=== PATIENT | male | born 1935 | race Caucasian/White ===

== ENCOUNTER 2016-11-09 09:51 | Emergency (ER) | payer MEDICARE | END 2016-11-09 11:18 | disposition home or self-care (01) | LOC: EDBD → ER 09:51 → MERGE 09:51 → ER 11:18 | DX: S20.212A Contusion of left front wall of thorax, initial encounter (principal); S70.01XA Contusion of right hip, initial encounter; W01.0XXA Fall on same level from slipping, tripping and stumbling without subsequent striking against object, initial encounter; Y92.009 Unspecified place in unspecified non-institutional (private) residence as the place of occurrence of the external cause; Z79.899 Other long term (current) drug therapy; Z79.82 Long term (current) use of aspirin; I10 Essential (primary) hypertension; E03.9 Hypothyroidism, unspecified; F32.9 Major depressive disorder, single episode, unspecified; Z86.73 Personal history of transient ischemic attack (TIA), and cerebral infarction without residual deficits ==

== ENCOUNTER 2016-11-14 10:56 | Inpatient (IN) | payer MEDICARE ==
[~2016-11-14] VITALS: Ht 188 cm; Wt 98.9 kg
[2016-11-14] MEDS ORDERED: ACETAMINOPHEN 325 MG TAB PO PRN (11:00)
[2016-11-14] MEDS ORDERED: TEMAZEPAM 7.5 MG CAP PO PRN (11:00)
[2016-11-14] MEDS ORDERED: DEXTROSE 50% SYRINGE 50 ML IV PRN (11:00)
[2016-11-14] MEDS ORDERED: GLUCAGON 1 MG VIAL IM PRN (11:00)
[2016-11-14] MEDS ORDERED: SALINE FLUSH 10 ML FLUSH PRN (11:00)
[2016-11-14] MEDS: OMNIPAQUE 240 MG/ML, 50 ML PO SCH ×2 (11:00→13:00)
[2016-11-14] MEDS ORDERED: Aspirin 325 MG TAB PO SCH (11:55)
[2016-11-14] MEDS ORDERED: PANTOPRAZOLE 40 MG TAB PO SCH (11:56)
[2016-11-14 12:54] VITALS: BP_SYST 137; BP_SYST 146; RESP 18; TEMP 97.6
[2016-11-14 12:55] VITALS: Ht 188 cm; Wt 98.9 kg
[2016-11-14] MEDS: BUPROPION XL 150 MG TAB PO SCH (14:20)
[2016-11-14] MEDS: GABAPENTIN 100 MG CAP PO SCH ×2 (14:21→21:05)
[2016-11-14] MEDS: DILTIAZEM CD 240 MG CAP PO SCH (14:21)
[2016-11-14] MEDS: ESCITALOPRAM 10 MG TAB PO SCH (14:21)
[2016-11-14] MEDS: FOLIC ACID 1 MG TAB PO SCH (14:21)
[2016-11-14] MEDS: CALC CARB 500 MG CHEWTAB PO SCH (14:21)
[2016-11-14] MEDS: CHOLECALCIFEROL 1,000 UNITS TAB PO SCH (14:21)
[2016-11-14] MEDS: HCTZ 25 MG TAB PO SCH (14:22)
[2016-11-14] MEDS: LEVETIRACETAM 500 MG TAB PO SCH ×2 (14:22→21:05)
[2016-11-14] MEDS: KCL CR 8 MEQ TAB PO SCH ×2 (14:22→21:05)
[2016-11-14] MEDS: IRBESARTAN 150 MG TAB PO SCH (14:22)
[2016-11-14] MEDS: LORATADINE 10 MG TAB PO SCH (14:22)
[2016-11-14] MEDS: PREDNISONE 5 MG TAB PO SCH (14:23)
[2016-11-14] MEDS: ASPIRIN 81 MG CHEW TAB PO SCH (14:25)
[2016-11-14] MEDS: PANTOPRAZOLE 40 MG TAB PO SCH (14:57)
[2016-11-14] MEDS: LISINOPRIL 10 MG TAB PO SCH (14:58)
[2016-11-14] MEDS: TAMSULOSIN 0.4 MG CAP PO SCH (19:36)
[2016-11-14 20:25] VITALS: BP_SYST 156; RESP 18; TEMP 98.5
[2016-11-14] MEDS ORDERED: MIRTAZAPINE 15 MG TAB PO SCH (21:00)
[2016-11-14] MEDS ORDERED: Atorvastatin 20 MG TAB PO SCH (21:00)
[2016-11-14] MEDS: SALINE FLUSH 10 ML FLUSH SCH (21:04)
[2016-11-14] MEDS: Atorvastatin 10 MG TAB PO SCH (21:05)
[2016-11-14] MEDS: MONTELUKAST 10 MG TAB PO SCH (21:05)
[2016-11-14] MEDS: Finasteride 5 MG TAB PO SCH (21:05)
[2016-11-14] MEDS: SODIUM CHLORIDE 0.9% FLUSH BAG 500 ML IV SCH (23:49)
[2016-11-14 23:55] VITALS: BP_SYST 159; RESP 17; TEMP 98
[2016-11-15 04:08] VITALS: BP_SYST 148; RESP 17; TEMP 97.5
[2016-11-15] MEDS: PANTOPRAZOLE 40 MG TAB PO SCH ×2 (06:02→18:25)
[2016-11-15 07:15] VITALS: BP_SYST 133; RESP 18; TEMP 97.3
[2016-11-15] MEDS ORDERED: ASPIRIN 81 MG CHEW TAB PO SCH (09:00)
[2016-11-15] MEDS: GABAPENTIN 100 MG CAP PO SCH ×2 (09:10→21:55)
[2016-11-15] MEDS: FOLIC ACID 1 MG TAB PO SCH (09:10)
[2016-11-15] MEDS: SALINE FLUSH 10 ML FLUSH SCH ×2 (09:10→19:38)
[2016-11-15] MEDS: ESCITALOPRAM 10 MG TAB PO SCH (09:10)
[2016-11-15] MEDS: HCTZ 25 MG TAB PO SCH (09:10)
[2016-11-15] MEDS: ASPIRIN 81 MG CHEW TAB PO SCH (09:10)
[2016-11-15] MEDS: CALC CARB 500 MG CHEWTAB PO SCH (09:11)
[2016-11-15] MEDS: CHOLECALCIFEROL 1,000 UNITS TAB PO SCH (09:11)
[2016-11-15] MEDS: DILTIAZEM CD 240 MG CAP PO SCH (09:11)
[2016-11-15] MEDS: LISINOPRIL 10 MG TAB PO SCH (09:11)
[2016-11-15] MEDS: IRBESARTAN 150 MG TAB PO SCH (09:11)
[2016-11-15] MEDS: LEVETIRACETAM 500 MG TAB PO SCH ×2 (09:11→21:54)
[2016-11-15] MEDS: BUPROPION XL 150 MG TAB PO SCH (09:11)
[2016-11-15] MEDS: LORATADINE 10 MG TAB PO SCH (09:11)
[2016-11-15] MEDS: KCL CR 8 MEQ TAB PO SCH ×2 (09:11→21:54)
[2016-11-15] MEDS: PREDNISONE 5 MG TAB PO SCH (09:12)
[2016-11-15] MEDS: OMNIPAQUE 240 MG/ML, 50 ML PO SCH (11:09)
[2016-11-15 12:17] VITALS: BP_SYST 147; RESP 16; TEMP 97.7
[2016-11-15] MEDS ORDERED: CLOPIDOGREL 75 MG TAB PO ONE (12:30)
[2016-11-15 17:20] VITALS: BP_SYST 144; RESP 18; TEMP 98.3
[2016-11-15] MEDS: TAMSULOSIN 0.4 MG CAP PO SCH (18:24)
[2016-11-15 19:50] VITALS: BP_SYST 152; RESP 16; TEMP 98.6
[2016-11-15] MEDS: MIRTAZAPINE 15 MG TAB PO SCH (21:54)
[2016-11-15] MEDS: Finasteride 5 MG TAB PO SCH (21:54)
[2016-11-15] MEDS: MONTELUKAST 10 MG TAB PO SCH (21:55)
[2016-11-15] MEDS: Atorvastatin 10 MG TAB PO SCH (21:55)
[2016-11-15 23:25] VITALS: BP_SYST 187; RESP 16; TEMP 98.4
[2016-11-16 03:06] VITALS: BP_SYST 128; BP_SYST 165; RESP 16; TEMP 97.9; TEMP 98.5
[2016-11-16] MEDS: SODIUM CHLORIDE 0.9% FLUSH BAG 500 ML IV SCH (06:00)
[2016-11-16] MEDS: PANTOPRAZOLE 40 MG TAB PO SCH ×2 (06:09→17:43)
[2016-11-16 07:42] VITALS: BP_SYST 174; RESP 16; TEMP 97.5
[2016-11-16] MEDS ORDERED: CLOPIDOGREL 75 MG TAB PO SCH (09:00)
[2016-11-16 11:21] VITALS: BP_SYST 156; RESP 16; TEMP 98.5
[2016-11-16] MEDS: LISINOPRIL 10 MG TAB PO SCH (12:08)
[2016-11-16] MEDS: BUPROPION XL 150 MG TAB PO SCH (12:08)
[2016-11-16] MEDS: CALC CARB 500 MG CHEWTAB PO SCH (12:08)
[2016-11-16] MEDS: ESCITALOPRAM 10 MG TAB PO SCH (12:08)
[2016-11-16] MEDS: GABAPENTIN 100 MG CAP PO SCH ×2 (12:08→20:42)
[2016-11-16] MEDS: PREDNISONE 5 MG TAB PO SCH (12:08)
[2016-11-16] MEDS: HCTZ 25 MG TAB PO SCH (12:09)
[2016-11-16] MEDS: DILTIAZEM CD 240 MG CAP PO SCH (12:09)
[2016-11-16] MEDS: LORATADINE 10 MG TAB PO SCH (12:09)
[2016-11-16] MEDS: KCL CR 8 MEQ TAB PO SCH ×2 (12:09→20:42)
[2016-11-16] MEDS: LEVETIRACETAM 500 MG TAB PO SCH ×2 (12:09→20:42)
[2016-11-16] MEDS: FOLIC ACID 1 MG TAB PO SCH (12:09)
[2016-11-16] MEDS: IRBESARTAN 150 MG TAB PO SCH (12:09)
[2016-11-16] MEDS: ASPIRIN 81 MG CHEW TAB PO SCH (12:09)
[2016-11-16] MEDS: CHOLECALCIFEROL 1,000 UNITS TAB PO SCH (12:09)
[2016-11-16] MEDS: SALINE FLUSH 10 ML FLUSH SCH ×2 (12:10→19:38)
[2016-11-16 15:37] VITALS: BP_SYST 147; RESP 16; TEMP 98.4
[2016-11-16] MEDS: TAMSULOSIN 0.4 MG CAP PO SCH (17:43)
[2016-11-16] MEDS ORDERED: HALOPERIDOL 5 MG/ML VIAL IM PRN (17:45)
[2016-11-16 19:49] VITALS: BP_SYST 142; RESP 18; TEMP 98.6
[2016-11-16] MEDS: Finasteride 5 MG TAB PO SCH (20:42)
[2016-11-16] MEDS: Atorvastatin 10 MG TAB PO SCH (20:42)
[2016-11-16] MEDS: QUEtiapine 25 MG TAB PO SCH (20:42)
[2016-11-16] MEDS: MONTELUKAST 10 MG TAB PO SCH (20:42)
[2016-11-16] MEDS: MIRTAZAPINE 15 MG TAB PO SCH (20:44)
[2016-11-16 23:25] VITALS: BP_SYST 172; RESP 18; TEMP 99.2
[2016-11-17 03:18] VITALS: BP_SYST 143; RESP 18; TEMP 98.9
[2016-11-17] MEDS: SODIUM CHLORIDE 0.9% FLUSH BAG 500 ML IV SCH (05:42)
[2016-11-17] MEDS: PANTOPRAZOLE 40 MG TAB PO SCH ×2 (06:09→17:24)
[2016-11-17 08:32] VITALS: BP_SYST 161; RESP 18; TEMP 98.2
[2016-11-17] MEDS: GABAPENTIN 100 MG CAP PO SCH ×2 (09:06→21:06)
[2016-11-17] MEDS: DILTIAZEM CD 240 MG CAP PO SCH (09:07)
[2016-11-17] MEDS: HCTZ 25 MG TAB PO SCH (09:07)
[2016-11-17] MEDS: CALC CARB 500 MG CHEWTAB PO SCH (09:07)
[2016-11-17] MEDS: LORATADINE 10 MG TAB PO SCH (09:07)
[2016-11-17] MEDS: KCL CR 8 MEQ TAB PO SCH ×2 (09:07→21:08)
[2016-11-17] MEDS: ESCITALOPRAM 10 MG TAB PO SCH (09:07)
[2016-11-17] MEDS: CHOLECALCIFEROL 1,000 UNITS TAB PO SCH (09:07)
[2016-11-17] MEDS: FOLIC ACID 1 MG TAB PO SCH (09:07)
[2016-11-17] MEDS: IRBESARTAN 150 MG TAB PO SCH (09:08)
[2016-11-17] MEDS: SALINE FLUSH 10 ML FLUSH SCH ×2 (09:08→21:09)
[2016-11-17] MEDS: LEVETIRACETAM 500 MG TAB PO SCH ×2 (09:08→21:05)
[2016-11-17] MEDS: ASPIRIN 81 MG CHEW TAB PO SCH (09:08)
[2016-11-17] MEDS: LISINOPRIL 10 MG TAB PO SCH (09:08)
[2016-11-17] MEDS ORDERED: MISSING DOSE XX ONE (09:20)
[2016-11-17] MEDS ORDERED: KCL CR 10 MEQ CAP PO ONE (09:50)
[2016-11-17] MEDS ORDERED: LISINOPRIL 10 MG TAB PO ONE (09:50)
[2016-11-17] MEDS: BUPROPION XL 150 MG TAB PO SCH (10:26)
[2016-11-17] MEDS: PREDNISONE 5 MG TAB PO SCH (10:26)
[2016-11-17 11:35] VITALS: BP_SYST 153; RESP 18; TEMP 98
[2016-11-17 14:53] VITALS: BP_SYST 147; RESP 18; TEMP 98.3
[2016-11-17] MEDS: TAMSULOSIN 0.4 MG CAP PO SCH (17:24)
[2016-11-17 20:38] VITALS: BP_SYST 170; RESP 18; TEMP 98.2
[2016-11-17] MEDS: Atorvastatin 10 MG TAB PO SCH (21:05)
[2016-11-17] MEDS: Finasteride 5 MG TAB PO SCH (21:06)
[2016-11-17] MEDS: MONTELUKAST 10 MG TAB PO SCH (21:07)
[2016-11-17] MEDS: MIRTAZAPINE 15 MG TAB PO SCH (21:07)
[2016-11-17] MEDS: QUEtiapine 25 MG TAB PO SCH (22:12)
[2016-11-18] VITALS (7 sets, daily range): BP systolic 124–151; RESP 18; TEMP 97.7–98.6
[2016-11-18] MEDS: SODIUM CHLORIDE 0.9% FLUSH BAG 500 ML IV SCH (06:00)
[2016-11-18] MEDS: PANTOPRAZOLE 40 MG TAB PO SCH ×2 (06:49→16:52)
[2016-11-18] MEDS: SALINE FLUSH 10 ML FLUSH SCH ×2 (08:23→20:56)
[2016-11-18] MEDS: GABAPENTIN 100 MG CAP PO SCH ×2 (08:24→20:57)
[2016-11-18] MEDS: ASPIRIN 81 MG CHEW TAB PO SCH (08:24)
[2016-11-18] MEDS: CHOLECALCIFEROL 1,000 UNITS TAB PO SCH (08:24)
[2016-11-18] MEDS: KCL CR 8 MEQ TAB PO SCH ×2 (08:24→20:57)
[2016-11-18] MEDS: PREDNISONE 5 MG TAB PO SCH (08:25)
[2016-11-18] MEDS: HCTZ 25 MG TAB PO SCH (08:25)
[2016-11-18] MEDS: CALC CARB 500 MG CHEWTAB PO SCH (08:25)
[2016-11-18] MEDS: LORATADINE 10 MG TAB PO SCH (08:25)
[2016-11-18] MEDS: FOLIC ACID 1 MG TAB PO SCH (08:25)
[2016-11-18] MEDS: IRBESARTAN 150 MG TAB PO SCH (08:26)
[2016-11-18] MEDS: DILTIAZEM CD 240 MG CAP PO SCH (08:26)
[2016-11-18] MEDS: ESCITALOPRAM 10 MG TAB PO SCH (08:26)
[2016-11-18] MEDS: LEVETIRACETAM 500 MG TAB PO SCH ×2 (08:27→20:57)
[2016-11-18] MEDS: LISINOPRIL 20 MG TAB PO SCH (08:27)
[2016-11-18] MEDS: BUPROPION XL 150 MG TAB PO SCH (10:10)
[2016-11-18] MEDS ORDERED: LIDOCAINE 2% 20 ML INJ ONE (14:21)
[2016-11-18] MEDS ORDERED: SOD BICARB 8.4% VIAL 50 ML IV ONE (14:21)
[2016-11-18] MEDS: TAMSULOSIN 0.4 MG CAP PO SCH (17:49)
[2016-11-18] MEDS ORDERED: MISSING DOSE XX ONE (20:25)
[2016-11-18] MEDS: Finasteride 5 MG TAB PO SCH (20:57)
[2016-11-18] MEDS: MONTELUKAST 10 MG TAB PO SCH (20:57)
[2016-11-18] MEDS: Atorvastatin 10 MG TAB PO SCH (20:57)
[2016-11-18] MEDS: QUEtiapine 25 MG TAB PO SCH (20:57)
[2016-11-18] MEDS: MIRTAZAPINE 15 MG TAB PO SCH (21:00)
[2016-11-18] MEDS: TEMAZEPAM 7.5 MG CAP PO PRN (23:19)
[2016-11-19 03:18] VITALS: BP_SYST 169; RESP 18; TEMP 98.7
[2016-11-19] MEDS: PANTOPRAZOLE 40 MG TAB PO SCH ×2 (06:30→16:30)
[2016-11-19] MEDS: SODIUM CHLORIDE 0.9% FLUSH BAG 500 ML IV SCH (06:30)
[2016-11-19 07:55] VITALS: BP_SYST 167; RESP 18; TEMP 98.6
[2016-11-19] MEDS ORDERED: MISSING DOSE XX ONE (07:55)
[2016-11-19] MEDS: SALINE FLUSH 10 ML FLUSH SCH ×2 (08:00→20:00)
[2016-11-19] MEDS ORDERED: IVIG IV SCH ×3 (09:00)
[2016-11-19] MEDS ORDERED: IVIG 20 GM IV SCH ×2 (09:00)
[2016-11-19] MEDS ORDERED: FILL PIGGYBACK IV SCH (09:00)
[2016-11-19] MEDS: CHOLECALCIFEROL 1,000 UNITS TAB PO SCH (09:13)
[2016-11-19] MEDS: LEVETIRACETAM 500 MG TAB PO SCH ×2 (09:13→20:23)
[2016-11-19] MEDS: HCTZ 25 MG TAB PO SCH (09:13)
[2016-11-19] MEDS: DEXAMETHASONE 10 MG/ML VIAL IM/IV SCH (09:13)
[2016-11-19] MEDS: IRBESARTAN 150 MG TAB PO SCH (09:13)
[2016-11-19] MEDS: DILTIAZEM CD 240 MG CAP PO SCH (09:13)
[2016-11-19] MEDS: DIPHENHYDRAMINE 50 MG/ML VIAL IV SCH (09:13)
[2016-11-19] MEDS: ASPIRIN 81 MG CHEW TAB PO SCH (09:14)
[2016-11-19] MEDS: ESCITALOPRAM 10 MG TAB PO SCH (09:15)
[2016-11-19] MEDS: BUPROPION XL 150 MG TAB PO SCH (09:15)
[2016-11-19] MEDS: FOLIC ACID 1 MG TAB PO SCH (09:15)
[2016-11-19] MEDS: PREDNISONE 5 MG TAB PO SCH (09:15)
[2016-11-19] MEDS: CALC CARB 500 MG CHEWTAB PO SCH (09:15)
[2016-11-19] MEDS: KCL CR 8 MEQ TAB PO SCH ×2 (09:15→20:23)
[2016-11-19] MEDS: LISINOPRIL 20 MG TAB PO SCH (09:15)
[2016-11-19] MEDS: GABAPENTIN 100 MG CAP PO SCH ×2 (09:15→20:23)
[2016-11-19] MEDS: LORATADINE 10 MG TAB PO SCH (09:15)
[2016-11-19 12:03] VITALS: BP_SYST 163; RESP 18; TEMP 98.4
[2016-11-19 16:21] VITALS: BP_SYST 154; RESP 18; TEMP 98.4
[2016-11-19] MEDS: ENOXAPARIN 40 MG/0.4 ML SYR SUBQ SCH (16:31)
[2016-11-19] MEDS: TAMSULOSIN 0.4 MG CAP PO SCH (17:42)
[2016-11-19] MEDS: Atorvastatin 10 MG TAB PO SCH (20:23)
[2016-11-19] MEDS: MIRTAZAPINE 15 MG TAB PO SCH (20:23)
[2016-11-19] MEDS: QUEtiapine 25 MG TAB PO SCH (20:23)
[2016-11-19] MEDS: Finasteride 5 MG TAB PO SCH (20:23)
[2016-11-19] MEDS: MONTELUKAST 10 MG TAB PO SCH (20:23)
[2016-11-19 20:24] VITALS: BP_SYST 149; RESP 18; TEMP 98.6
[2016-11-19] MEDS: TEMAZEPAM 7.5 MG CAP PO PRN (20:35)
[2016-11-19 23:54] VITALS: BP_SYST 158; RESP 18; TEMP 98
[2016-11-20 03:41] VITALS: BP_SYST 158; RESP 18; TEMP 98
[2016-11-20] MEDS ORDERED: MISSING DOSE XX ONE ×2 (06:15→19:30)
[2016-11-20] MEDS: SODIUM CHLORIDE 0.9% FLUSH BAG 500 ML IV SCH (06:15)
[2016-11-20] MEDS: PANTOPRAZOLE 40 MG TAB PO SCH ×2 (06:15→17:00)
[2016-11-20] MEDS: SALINE FLUSH 10 ML FLUSH SCH ×2 (07:58→19:32)
[2016-11-20] MEDS: ENOXAPARIN 40 MG/0.4 ML SYR SUBQ SCH (08:18)
[2016-11-20] MEDS: CHOLECALCIFEROL 1,000 UNITS TAB PO SCH (08:20)
[2016-11-20] MEDS: CALC CARB 500 MG CHEWTAB PO SCH (08:20)
[2016-11-20] MEDS: HCTZ 25 MG TAB PO SCH (08:20)
[2016-11-20] MEDS: LEVETIRACETAM 500 MG TAB PO SCH ×2 (08:20→21:06)
[2016-11-20] MEDS: LORATADINE 10 MG TAB PO SCH (08:20)
[2016-11-20] MEDS: BUPROPION XL 150 MG TAB PO SCH (08:20)
[2016-11-20] MEDS: ESCITALOPRAM 10 MG TAB PO SCH (08:20)
[2016-11-20] MEDS: ASPIRIN 81 MG CHEW TAB PO SCH (08:21)
[2016-11-20] MEDS: LISINOPRIL 20 MG TAB PO SCH (08:21)
[2016-11-20] MEDS: IRBESARTAN 150 MG TAB PO SCH (08:21)
[2016-11-20] MEDS: KCL CR 8 MEQ TAB PO SCH ×2 (08:21→19:32)
[2016-11-20] MEDS: DILTIAZEM CD 240 MG CAP PO SCH (08:21)
[2016-11-20] MEDS: PREDNISONE 5 MG TAB PO SCH (08:22)
[2016-11-20] MEDS: FOLIC ACID 1 MG TAB PO SCH (08:22)
[2016-11-20] MEDS: GABAPENTIN 100 MG CAP PO SCH ×2 (08:22→19:33)
[2016-11-20] MEDS: DEXAMETHASONE 10 MG/ML VIAL IM/IV SCH (08:22)
[2016-11-20] MEDS: DIPHENHYDRAMINE 50 MG/ML VIAL IV SCH (08:23)
[2016-11-20 08:35] VITALS: BP_SYST 157; RESP 18; TEMP 98.4
[2016-11-20] MEDS: IMMUNE GLOBULIN IV SCH ×3 (09:41→16:14)
[2016-11-20 11:19] VITALS: BP_SYST 152; RESP 18; TEMP 98.6
[2016-11-20] MEDS ORDERED: KCL CR 8 MEQ TAB PO ONE (11:20)
[2016-11-20] MEDS ORDERED: Furosemide 40 MG/4 ML VIAL IV ONE (11:20)
[2016-11-20 16:08] VITALS: BP_SYST 153; RESP 18; TEMP 98.1
[2016-11-20] MEDS: TAMSULOSIN 0.4 MG CAP PO SCH (17:00)
[2016-11-20] MEDS: QUEtiapine 25 MG TAB PO SCH (19:32)
[2016-11-20] MEDS: Finasteride 5 MG TAB PO SCH (19:33)
[2016-11-20] MEDS: Atorvastatin 10 MG TAB PO SCH (19:33)
[2016-11-20] MEDS: MONTELUKAST 10 MG TAB PO SCH (19:33)
[2016-11-20] MEDS: MIRTAZAPINE 15 MG TAB PO SCH (19:33)
[2016-11-20 20:08] VITALS: BP_SYST 169; RESP 18; TEMP 98
[2016-11-20] MEDS ORDERED: TEMAZEPAM 7.5 MG CAP PO SCH (21:00)
[2016-11-21] VITALS (7 sets, daily range): BP systolic 154–186; RESP 18–20; TEMP 97.1–98.3
[2016-11-21] MEDS: SODIUM CHLORIDE 0.9% FLUSH BAG 500 ML IV SCH (05:10)
[2016-11-21] MEDS: PANTOPRAZOLE 40 MG TAB PO SCH ×2 (05:10→17:07)
[2016-11-21] MEDS: DEXAMETHASONE 10 MG/ML VIAL IM/IV SCH (08:57)
[2016-11-21] MEDS: DIPHENHYDRAMINE 50 MG/ML VIAL IV SCH (08:57)
[2016-11-21] MEDS: SALINE FLUSH 10 ML FLUSH SCH ×2 (08:57→20:38)
[2016-11-21] MEDS: IMMUNE GLOBULIN IV SCH ×3 (08:58→17:06)
[2016-11-21] MEDS: DILTIAZEM CD 240 MG CAP PO SCH (09:00)
[2016-11-21] MEDS: HCTZ 25 MG TAB PO SCH (09:00)
[2016-11-21] MEDS: GABAPENTIN 100 MG CAP PO SCH ×2 (09:00→20:38)
[2016-11-21] MEDS ORDERED: MISSING DOSE XX ONE ×2 (09:45→12:10)
[2016-11-21] MEDS ORDERED: SODIUM CHLOR 0.9% W/KCL 20MEQ 1,000 ML IV SCH (10:35)
[2016-11-21] MEDS: ENOXAPARIN 40 MG/0.4 ML SYR SUBQ SCH (12:04)
[2016-11-21] MEDS: ESCITALOPRAM 10 MG TAB PO SCH (12:05)
[2016-11-21] MEDS: LORATADINE 10 MG TAB PO SCH (12:06)
[2016-11-21] MEDS: BUPROPION XL 150 MG TAB PO SCH (12:06)
[2016-11-21] MEDS: FOLIC ACID 1 MG TAB PO SCH (12:06)
[2016-11-21] MEDS: CALC CARB 500 MG CHEWTAB PO SCH (12:06)
[2016-11-21] MEDS: CHOLECALCIFEROL 1,000 UNITS TAB PO SCH (12:06)
[2016-11-21] MEDS: KCL CR 8 MEQ TAB PO SCH ×2 (12:07→20:38)
[2016-11-21] MEDS: LEVETIRACETAM 500 MG TAB PO SCH ×2 (12:07→20:39)
[2016-11-21] MEDS: IRBESARTAN 150 MG TAB PO SCH (12:07)
[2016-11-21] MEDS: ASPIRIN 81 MG CHEW TAB PO SCH (12:08)
[2016-11-21] MEDS: PREDNISONE 5 MG TAB PO SCH (12:19)
[2016-11-21] MEDS: LISINOPRIL 20 MG TAB PO SCH (12:31)
[2016-11-21] MEDS: TAMSULOSIN 0.4 MG CAP PO SCH (17:31)
[2016-11-21] MEDS ORDERED: LISINOPRIL 10 MG TAB PO ONE (20:10)
[2016-11-21] MEDS: Finasteride 5 MG TAB PO SCH (20:38)
[2016-11-21] MEDS: Atorvastatin 10 MG TAB PO SCH (20:38)
[2016-11-21] MEDS: QUEtiapine 25 MG TAB PO SCH (20:39)
[2016-11-21] MEDS: MONTELUKAST 10 MG TAB PO SCH (20:39)
[2016-11-21] MEDS: MIRTAZAPINE 15 MG TAB PO SCH (20:39)
[2016-11-22] VITALS: BP_SYST 190; RESP 18; TEMP 98.1
[2016-11-22 04:00] VITALS: BP_SYST 172; BP_SYST 201; RESP 18; TEMP 98.1
[2016-11-22] MEDS: SODIUM CHLORIDE 0.9% FLUSH BAG 500 ML IV SCH (06:09)
[2016-11-22] MEDS: PANTOPRAZOLE 40 MG TAB PO SCH (06:09)
[2016-11-22 07:40] VITALS: BP_SYST 180; RESP 18; TEMP 97.8
[2016-11-22] MEDS ORDERED: LISINOPRIL 10 MG TAB PO SCH (09:00)
[2016-11-22] MEDS: SALINE FLUSH 10 ML FLUSH SCH (09:10)
[2016-11-22] MEDS: DEXAMETHASONE 10 MG/ML VIAL IM/IV SCH (09:10)
[2016-11-22] MEDS: DIPHENHYDRAMINE 50 MG/ML VIAL IV SCH (09:10)
[2016-11-22] MEDS: IMMUNE GLOBULIN IV SCH ×3 (09:11→13:03)
[2016-11-22] MEDS: BUPROPION XL 150 MG TAB PO SCH (09:12)
[2016-11-22] MEDS: FOLIC ACID 1 MG TAB PO SCH (09:12)
[2016-11-22] MEDS: IRBESARTAN 150 MG TAB PO SCH (09:12)
[2016-11-22] MEDS: LORATADINE 10 MG TAB PO SCH (09:12)
[2016-11-22] MEDS: HCTZ 25 MG TAB PO SCH (09:12)
[2016-11-22] MEDS: CHOLECALCIFEROL 1,000 UNITS TAB PO SCH (09:13)
[2016-11-22] MEDS: PREDNISONE 5 MG TAB PO SCH (09:13)
[2016-11-22] MEDS: DILTIAZEM CD 240 MG CAP PO SCH (09:13)
[2016-11-22] MEDS: CALC CARB 500 MG CHEWTAB PO SCH (09:13)
[2016-11-22] MEDS: KCL CR 8 MEQ TAB PO SCH (09:13)
[2016-11-22] MEDS: LEVETIRACETAM 500 MG TAB PO SCH (09:13)
[2016-11-22] MEDS: GABAPENTIN 100 MG CAP PO SCH (09:13)
[2016-11-22] MEDS: ASPIRIN 81 MG CHEW TAB PO SCH (09:13)
[2016-11-22] MEDS: ESCITALOPRAM 10 MG TAB PO SCH (09:13)
[2016-11-22] MEDS: ENOXAPARIN 40 MG/0.4 ML SYR SUBQ SCH (09:14)
[2016-11-22 11:20] VITALS: BP_SYST 154; RESP 18; TEMP 97.6
[2016-11-22 13:30] VITALS: BP_SYST 148; RESP 18; TEMP 98.5
[2016-11-22 14:49] VITALS: BP_SYST 148; RESP 18; TEMP 98.5
[2016-11-22] MEDS ORDERED: QUEtiapine 25 MG TAB PO SCH (21:00)
== END 2016-11-22 13:30 | DRG 95 ==
LOC: ENRESERVTM → ENRESERVDT → TBA 11:30 → DELPENDDIS 11:30 → ENPENDDIS 11:30 → PCU 11:55 → UNDODISIN 11-22 11:40
PROVIDERS: ADMIT Internal Medicine; ATTEND Internal Medicine
PROC: 009U3ZX Drainage of Spinal Canal, Percutaneous Approach, Diagnostic (ICD-10-PCS; principal; 2016-11-18)
DX: G61.0 Guillain-Barre syndrome (principal); F05 Delirium due to known physiological condition; G70.00 Myasthenia gravis without (acute) exacerbation; M50.222 Other cervical disc displacement at C5-C6 level; G61.81 Chronic inflammatory demyelinating polyneuritis; N18.3 Chronic kidney disease, stage 3 (moderate); I65.21 Occlusion and stenosis of right carotid artery; D64.9 Anemia, unspecified; Z86.73 Personal history of transient ischemic attack (TIA), and cerebral infarction without residual deficits; M19.90 Unspecified osteoarthritis, unspecified site; E78.5 Hyperlipidemia, unspecified; F32.9 Major depressive disorder, single episode, unspecified; N40.0 Benign prostatic hyperplasia without lower urinary tract symptoms; M48.06 Spinal stenosis, lumbar region; I12.9 Hypertensive chronic kidney disease with stage 1 through stage 4 chronic kidney disease, or unspecified chronic kidney disease; Z79.52 Long term (current) use of systemic steroids; E83.110 Hereditary hemochromatosis
CPT/HCPCS: 36600; 62270; 70551; 71010; 71020; 71250; 72141; 74176; 77003; 80048; 80053; 80061; 80177; 81003; 82607; 82728; 82746; 82803; 82945; 82947; 82951; 82952; 83018; 83036; 83540; 83735; 83880; 84157; 84238; 84439; 84443; 84466; 84484; 85025; 85610; 85652; 86141; 86256; 86618; 86694; 87071; 87205; 89051; 93005; 93880; 95819

== ENCOUNTER 2016-11-17 12:43 | Inpatient (IN) | payer MEDICARE ==
[~2016-11-17] VITALS: Ht 188 cm; Wt 99.1 kg
[2016-11-18] MEDS ORDERED: ACETAMINOPHEN 325 MG TAB PO PRN (13:55)
[2016-11-18] MEDS ORDERED: TRAMADOL 50 MG TAB PO PRN (13:55)
[2016-11-18] MEDS ORDERED: BISACODYL EC 5 MG TAB PO PRN (13:55)
[2016-11-19] MEDS ORDERED: PANTOPRAZOLE 40 MG TAB PO SCH (07:00)
[2016-11-22] MEDS ORDERED: TEMAZEPAM 15 MG CAP PO PRN (11:15)
[2016-11-22] MEDS ORDERED: SALINE FLUSH 10 ML FLUSH PRN (13:55)
[2016-11-22 16:39] VITALS: BP_SYST 172; RESP 20; TEMP 98; BMI 28.3
[2016-11-22] MEDS: PANTOPRAZOLE 40 MG TAB PO SCH (17:47)
[2016-11-22] MEDS: TAMSULOSIN 0.4 MG CAP PO SCH (17:48)
[2016-11-22] MEDS ORDERED: SALINE FLUSH 10 ML FLUSH SCH (20:00)
[2016-11-22] MEDS ORDERED: TUBERCULIN PPD 5 UNIT SYR ID.VACC SCH (21:00)
[2016-11-22] MEDS: GABAPENTIN 100 MG CAP PO SCH (21:27)
[2016-11-22] MEDS: KCL CR 8 MEQ TAB PO SCH (21:28)
[2016-11-22] MEDS: MONTELUKAST 10 MG TAB PO SCH (21:28)
[2016-11-22] MEDS: Atorvastatin 10 MG TAB PO SCH (21:28)
[2016-11-22] MEDS: MIRTAZAPINE 15 MG TAB PO SCH (21:29)
[2016-11-22] MEDS: LEVETIRACETAM 500 MG TAB PO SCH (21:29)
[2016-11-22] MEDS: Finasteride 5 MG TAB PO SCH (21:29)
[2016-11-22] MEDS: QUEtiapine 25 MG TAB PO SCH (21:29)
[2016-11-22] MEDS: TEMAZEPAM 15 MG CAP PO PRN (21:34)
[2016-11-23] MEDS ORDERED: SODIUM CHLORIDE 0.9% FLUSH BAG 500 ML IV SCH ×2 (06:00)
[2016-11-23 06:08] VITALS: BP_SYST 168; RESP 20; TEMP 97.5
[2016-11-23] MEDS: PANTOPRAZOLE 40 MG TAB PO SCH ×2 (06:22→17:58)
[2016-11-23] MEDS: LISINOPRIL 20 MG TAB PO SCH (08:43)
[2016-11-23] MEDS: ESCITALOPRAM 10 MG TAB PO SCH (08:43)
[2016-11-23] MEDS: CALC CARB 500 MG CHEWTAB PO SCH (08:43)
[2016-11-23] MEDS: KCL CR 8 MEQ TAB PO SCH ×2 (08:43→20:10)
[2016-11-23] MEDS: LORATADINE 10 MG TAB PO SCH (08:43)
[2016-11-23] MEDS: GABAPENTIN 100 MG CAP PO SCH ×2 (08:44→20:11)
[2016-11-23] MEDS: ASPIRIN 81 MG CHEW TAB PO SCH (08:44)
[2016-11-23] MEDS: HCTZ 25 MG TAB PO SCH (08:44)
[2016-11-23] MEDS: BUPROPION XL 150 MG TAB PO SCH (08:44)
[2016-11-23] MEDS: DILTIAZEM CD 240 MG CAP PO SCH (08:44)
[2016-11-23] MEDS: LEVETIRACETAM 500 MG TAB PO SCH ×2 (08:44→20:11)
[2016-11-23] MEDS: FOLIC ACID 1 MG TAB PO SCH (08:44)
[2016-11-23] MEDS: CHOLECALCIFEROL 1,000 UNITS TAB PO SCH (08:44)
[2016-11-23] MEDS: PREDNISONE 5 MG TAB PO SCH (08:45)
[2016-11-23] MEDS: IRBESARTAN 150 MG TAB PO SCH (08:45)
[2016-11-23] MEDS: ENOXAPARIN 30 MG/0.3 ML SYR SUBQ SCH (08:46)
[2016-11-23] MEDS ORDERED: LISINOPRIL 20 MG TAB PO SCH (09:00)
[2016-11-23 10:40] VITALS: Ht 188 cm; Wt 99.1 kg
[2016-11-23 12:05] VITALS: BP_SYST 209; RESP 20; TEMP 97.4
[2016-11-23 12:07] VITALS: BP_SYST 160
[2016-11-23 16:18] VITALS: BP_SYST 137; RESP 20; TEMP 97.8
[2016-11-23] MEDS: TAMSULOSIN 0.4 MG CAP PO SCH (17:58)
[2016-11-23] MEDS: Finasteride 5 MG TAB PO SCH (20:10)
[2016-11-23] MEDS: MONTELUKAST 10 MG TAB PO SCH (20:10)
[2016-11-23] MEDS: Atorvastatin 10 MG TAB PO SCH (20:11)
[2016-11-23] MEDS: MIRTAZAPINE 15 MG TAB PO SCH (20:12)
[2016-11-23] MEDS: TEMAZEPAM 15 MG CAP PO PRN (20:13)
[2016-11-23] MEDS: QUEtiapine 25 MG TAB PO SCH (20:14)
[2016-11-24 04:57] VITALS: BP_SYST 160; RESP 20; TEMP 98.1
[2016-11-24] MEDS: PANTOPRAZOLE 40 MG TAB PO SCH ×2 (06:25→15:19)
[2016-11-24] MEDS: IRBESARTAN 150 MG TAB PO SCH (09:20)
[2016-11-24] MEDS: LISINOPRIL 20 MG TAB PO SCH (09:21)
[2016-11-24] MEDS: LEVETIRACETAM 500 MG TAB PO SCH ×2 (09:22→20:34)
[2016-11-24] MEDS: KCL CR 8 MEQ TAB PO SCH ×2 (09:22→20:34)
[2016-11-24] MEDS: DILTIAZEM CD 240 MG CAP PO SCH (09:23)
[2016-11-24] MEDS: BUPROPION XL 150 MG TAB PO SCH (09:23)
[2016-11-24] MEDS: ESCITALOPRAM 10 MG TAB PO SCH (09:23)
[2016-11-24] MEDS: GABAPENTIN 100 MG CAP PO SCH ×2 (09:24→20:37)
[2016-11-24] MEDS: FOLIC ACID 1 MG TAB PO SCH (09:24)
[2016-11-24] MEDS: HCTZ 25 MG TAB PO SCH (09:24)
[2016-11-24] MEDS: PREDNISONE 5 MG TAB PO SCH (09:24)
[2016-11-24] MEDS: LORATADINE 10 MG TAB PO SCH (09:25)
[2016-11-24] MEDS: CHOLECALCIFEROL 1,000 UNITS TAB PO SCH (09:25)
[2016-11-24] MEDS: CALC CARB 500 MG CHEWTAB PO SCH (09:25)
[2016-11-24] MEDS: ASPIRIN 81 MG CHEW TAB PO SCH (09:25)
[2016-11-24] MEDS: ENOXAPARIN 30 MG/0.3 ML SYR SUBQ SCH (09:26)
[2016-11-24 11:03] VITALS: BP_SYST 153; RESP 20; TEMP 98.5
[2016-11-24 16:23] VITALS: BP_SYST 129; RESP 18; TEMP 98.1
[2016-11-24] MEDS: TAMSULOSIN 0.4 MG CAP PO SCH (17:23)
[2016-11-24] MEDS: Finasteride 5 MG TAB PO SCH (20:33)
[2016-11-24] MEDS: Atorvastatin 10 MG TAB PO SCH (20:34)
[2016-11-24] MEDS: TEMAZEPAM 15 MG CAP PO PRN (20:34)
[2016-11-24] MEDS: MONTELUKAST 10 MG TAB PO SCH (20:34)
[2016-11-24] MEDS: MIRTAZAPINE 15 MG TAB PO SCH (20:35)
[2016-11-24] MEDS: QUEtiapine 25 MG TAB PO SCH (20:36)
[2016-11-24] MEDS: SKIN TEST: READ AND RECORD XX SCH (20:39)
[2016-11-25 04:12] VITALS: BP_SYST 144; RESP 20; TEMP 97.4
[2016-11-25 04:13] VITALS: TEMP 97.4
[2016-11-25] MEDS: PANTOPRAZOLE 40 MG TAB PO SCH ×2 (06:09→15:27)
[2016-11-25] MEDS: DILTIAZEM CD 240 MG CAP PO SCH (08:33)
[2016-11-25] MEDS: LEVETIRACETAM 500 MG TAB PO SCH ×2 (08:33→20:45)
[2016-11-25] MEDS: FOLIC ACID 1 MG TAB PO SCH (08:33)
[2016-11-25] MEDS: HCTZ 25 MG TAB PO SCH (08:34)
[2016-11-25] MEDS: PREDNISONE 5 MG TAB PO SCH (08:34)
[2016-11-25] MEDS: GABAPENTIN 100 MG CAP PO SCH ×2 (08:34→20:44)
[2016-11-25] MEDS: IRBESARTAN 150 MG TAB PO SCH (08:34)
[2016-11-25] MEDS: ENOXAPARIN 30 MG/0.3 ML SYR SUBQ SCH (08:34)
[2016-11-25] MEDS: LISINOPRIL 20 MG TAB PO SCH (08:35)
[2016-11-25] MEDS: CHOLECALCIFEROL 1,000 UNITS TAB PO SCH (08:35)
[2016-11-25] MEDS: LORATADINE 10 MG TAB PO SCH (08:35)
[2016-11-25] MEDS: CALC CARB 500 MG CHEWTAB PO SCH (08:35)
[2016-11-25] MEDS: ESCITALOPRAM 10 MG TAB PO SCH (08:35)
[2016-11-25] MEDS: ASPIRIN 81 MG CHEW TAB PO SCH (08:35)
[2016-11-25] MEDS: BUPROPION XL 150 MG TAB PO SCH (08:35)
[2016-11-25] MEDS ORDERED: MISSING DOSE XX ONE (08:40)
[2016-11-25] MEDS: KCL CR 8 MEQ TAB PO SCH ×2 (12:19→20:46)
[2016-11-25 12:30] VITALS: RESP 20; TEMP 97.2
[2016-11-25 15:39] VITALS: BP_SYST 127; RESP 20; TEMP 97.5
[2016-11-25] MEDS: TAMSULOSIN 0.4 MG CAP PO SCH (17:50)
[2016-11-25] MEDS: TEMAZEPAM 15 MG CAP PO PRN (20:41)
[2016-11-25] MEDS: QUEtiapine 25 MG TAB PO SCH (20:42)
[2016-11-25] MEDS: Atorvastatin 10 MG TAB PO SCH (20:44)
[2016-11-25] MEDS: Finasteride 5 MG TAB PO SCH (20:44)
[2016-11-25] MEDS: MONTELUKAST 10 MG TAB PO SCH (20:44)
[2016-11-25] MEDS: MIRTAZAPINE 15 MG TAB PO SCH (20:44)
[2016-11-26 03:27] VITALS: BP_SYST 139; RESP 20; TEMP 97.3
[2016-11-26] MEDS: PANTOPRAZOLE 40 MG TAB PO SCH ×2 (06:27→16:44)
[2016-11-26 07:00] VITALS: BP_SYST 151; RESP 16; TEMP 98
[2016-11-26] MEDS: FOLIC ACID 1 MG TAB PO SCH (09:10)
[2016-11-26] MEDS: HCTZ 25 MG TAB PO SCH (09:10)
[2016-11-26] MEDS: LORATADINE 10 MG TAB PO SCH (09:11)
[2016-11-26] MEDS: IRBESARTAN 150 MG TAB PO SCH (09:11)
[2016-11-26] MEDS: DILTIAZEM CD 240 MG CAP PO SCH (09:11)
[2016-11-26] MEDS: ASPIRIN 81 MG CHEW TAB PO SCH (09:11)
[2016-11-26] MEDS: LEVETIRACETAM 500 MG TAB PO SCH ×2 (09:11→21:08)
[2016-11-26] MEDS: KCL CR 8 MEQ TAB PO SCH ×2 (09:12→21:10)
[2016-11-26] MEDS: GABAPENTIN 100 MG CAP PO SCH ×2 (09:12→21:09)
[2016-11-26] MEDS: ESCITALOPRAM 10 MG TAB PO SCH (09:12)
[2016-11-26] MEDS: PREDNISONE 5 MG TAB PO SCH (09:12)
[2016-11-26] MEDS: CALC CARB 500 MG CHEWTAB PO SCH (09:13)
[2016-11-26] MEDS: CHOLECALCIFEROL 1,000 UNITS TAB PO SCH (09:13)
[2016-11-26] MEDS: LISINOPRIL 20 MG TAB PO SCH (09:13)
[2016-11-26] MEDS: BUPROPION XL 150 MG TAB PO SCH (09:13)
[2016-11-26] MEDS: ENOXAPARIN 30 MG/0.3 ML SYR SUBQ SCH (09:14)
[2016-11-26 16:18] VITALS: BP_SYST 120; RESP 18; TEMP 98.3
[2016-11-26] MEDS: TAMSULOSIN 0.4 MG CAP PO SCH (20:08)
[2016-11-26] MEDS: Atorvastatin 10 MG TAB PO SCH (21:08)
[2016-11-26] MEDS: TEMAZEPAM 15 MG CAP PO PRN (21:08)
[2016-11-26] MEDS: MIRTAZAPINE 15 MG TAB PO SCH (21:09)
[2016-11-26] MEDS: MONTELUKAST 10 MG TAB PO SCH (21:09)
[2016-11-26] MEDS: QUEtiapine 25 MG TAB PO SCH (21:10)
[2016-11-26] MEDS: Finasteride 5 MG TAB PO SCH (21:10)
[2016-11-27 05:53] VITALS: BP_SYST 113; RESP 18; TEMP 97.8
[2016-11-27] MEDS: PANTOPRAZOLE 40 MG TAB PO SCH ×2 (06:32→17:06)
[2016-11-27] MEDS: ASPIRIN 81 MG CHEW TAB PO SCH (08:45)
[2016-11-27] MEDS: LEVETIRACETAM 500 MG TAB PO SCH ×2 (08:46→20:19)
[2016-11-27] MEDS: IRBESARTAN 150 MG TAB PO SCH (08:46)
[2016-11-27] MEDS: DILTIAZEM CD 240 MG CAP PO SCH (08:46)
[2016-11-27] MEDS: LORATADINE 10 MG TAB PO SCH (08:46)
[2016-11-27] MEDS: GABAPENTIN 100 MG CAP PO SCH ×2 (08:47→20:19)
[2016-11-27] MEDS: ESCITALOPRAM 10 MG TAB PO SCH (08:47)
[2016-11-27] MEDS: BUPROPION XL 150 MG TAB PO SCH (08:48)
[2016-11-27] MEDS: LISINOPRIL 20 MG TAB PO SCH (08:48)
[2016-11-27] MEDS: CHOLECALCIFEROL 1,000 UNITS TAB PO SCH (08:48)
[2016-11-27] MEDS: PREDNISONE 5 MG TAB PO SCH (08:48)
[2016-11-27] MEDS: CALC CARB 500 MG CHEWTAB PO SCH (08:48)
[2016-11-27] MEDS: KCL CR 8 MEQ TAB PO SCH ×2 (08:48→20:19)
[2016-11-27] MEDS: ENOXAPARIN 30 MG/0.3 ML SYR SUBQ SCH (08:49)
[2016-11-27] MEDS: HCTZ 25 MG TAB PO SCH (08:49)
[2016-11-27] MEDS: FOLIC ACID 1 MG TAB PO SCH (08:49)
[2016-11-27 10:32] VITALS: BP_SYST 126; RESP 18; TEMP 97.8
[2016-11-27 15:54] VITALS: BP_SYST 120; RESP 20; TEMP 98.4
[2016-11-27] MEDS: TAMSULOSIN 0.4 MG CAP PO SCH (17:06)
[2016-11-27] MEDS: MONTELUKAST 10 MG TAB PO SCH (20:19)
[2016-11-27] MEDS: Atorvastatin 10 MG TAB PO SCH (20:19)
[2016-11-27] MEDS: Finasteride 5 MG TAB PO SCH (20:19)
[2016-11-27] MEDS: MIRTAZAPINE 15 MG TAB PO SCH (20:20)
[2016-11-27] MEDS: TEMAZEPAM 15 MG CAP PO PRN (20:20)
[2016-11-27] MEDS: QUEtiapine 25 MG TAB PO SCH (20:21)
[2016-11-28 01:30] VITALS: BP_SYST 149; RESP 20; TEMP 97.8
[2016-11-28] MEDS: PANTOPRAZOLE 40 MG TAB PO SCH ×2 (06:16→15:52)
[2016-11-28] MEDS: LISINOPRIL 20 MG TAB PO SCH (09:52)
[2016-11-28] MEDS: CHOLECALCIFEROL 1,000 UNITS TAB PO SCH (09:52)
[2016-11-28] MEDS: BUPROPION XL 150 MG TAB PO SCH (09:53)
[2016-11-28] MEDS: LORATADINE 10 MG TAB PO SCH (09:53)
[2016-11-28] MEDS: GABAPENTIN 100 MG CAP PO SCH ×2 (09:53→21:09)
[2016-11-28] MEDS: ESCITALOPRAM 10 MG TAB PO SCH (09:53)
[2016-11-28] MEDS: LEVETIRACETAM 500 MG TAB PO SCH ×2 (09:53→21:10)
[2016-11-28] MEDS: IRBESARTAN 150 MG TAB PO SCH (09:53)
[2016-11-28] MEDS: DILTIAZEM CD 240 MG CAP PO SCH (09:54)
[2016-11-28] MEDS: PREDNISONE 5 MG TAB PO SCH (09:54)
[2016-11-28] MEDS: KCL CR 8 MEQ TAB PO SCH (09:54)
[2016-11-28] MEDS: ASPIRIN 81 MG CHEW TAB PO SCH (09:55)
[2016-11-28] MEDS: FOLIC ACID 1 MG TAB PO SCH (09:55)
[2016-11-28] MEDS: CALC CARB 500 MG CHEWTAB PO SCH (09:55)
[2016-11-28] MEDS: HCTZ 25 MG TAB PO SCH (09:55)
[2016-11-28] MEDS: ENOXAPARIN 30 MG/0.3 ML SYR SUBQ SCH (09:56)
[2016-11-28 11:04] VITALS: BP_SYST 129; TEMP 97.8
[2016-11-28] MEDS ORDERED: KCL CR 10 MEQ CAP PO ONE (14:30)
[2016-11-28 16:43] VITALS: BP_SYST 166; RESP 18; TEMP 97.6
[2016-11-28] MEDS: TAMSULOSIN 0.4 MG CAP PO SCH (17:09)
[2016-11-28] MEDS: MIRTAZAPINE 15 MG TAB PO SCH (21:08)
[2016-11-28] MEDS: QUEtiapine 25 MG TAB PO SCH (21:08)
[2016-11-28] MEDS: MONTELUKAST 10 MG TAB PO SCH (21:09)
[2016-11-28] MEDS: TEMAZEPAM 15 MG CAP PO PRN (21:09)
[2016-11-28] MEDS: Atorvastatin 10 MG TAB PO SCH (21:09)
[2016-11-28] MEDS: Finasteride 5 MG TAB PO SCH (21:09)
[2016-11-28] MEDS: KCL CR 10 MEQ CAP PO SCH (21:12)
[2016-11-29 04:19] VITALS: BP_SYST 148; BP_SYST 170; RESP 20; TEMP 98.2
[2016-11-29] MEDS: PANTOPRAZOLE 40 MG TAB PO SCH ×2 (06:31→16:27)
[2016-11-29] MEDS: HCTZ 25 MG TAB PO SCH (09:22)
[2016-11-29] MEDS: IRBESARTAN 150 MG TAB PO SCH (09:22)
[2016-11-29] MEDS: KCL CR 10 MEQ CAP PO SCH ×2 (09:23→21:25)
[2016-11-29] MEDS: LEVETIRACETAM 500 MG TAB PO SCH ×2 (09:23→21:26)
[2016-11-29] MEDS: BUPROPION XL 150 MG TAB PO SCH (09:23)
[2016-11-29] MEDS: ESCITALOPRAM 10 MG TAB PO SCH (09:23)
[2016-11-29] MEDS: DILTIAZEM CD 120 MG CAP PO SCH (09:24)
[2016-11-29] MEDS: FOLIC ACID 1 MG TAB PO SCH (09:24)
[2016-11-29] MEDS: CALC CARB 500 MG CHEWTAB PO SCH (09:24)
[2016-11-29] MEDS: PREDNISONE 5 MG TAB PO SCH (09:25)
[2016-11-29] MEDS: LORATADINE 10 MG TAB PO SCH (09:25)
[2016-11-29] MEDS: GABAPENTIN 100 MG CAP PO SCH ×2 (09:25→21:26)
[2016-11-29] MEDS: CHOLECALCIFEROL 1,000 UNITS TAB PO SCH (09:26)
[2016-11-29] MEDS: LISINOPRIL 20 MG TAB PO SCH (09:27)
[2016-11-29] MEDS: ENOXAPARIN 30 MG/0.3 ML SYR SUBQ SCH (09:27)
[2016-11-29] MEDS: ASPIRIN 81 MG CHEW TAB PO SCH (09:28)
[2016-11-29 11:09] VITALS: BP_SYST 123; RESP 20; TEMP 98
[2016-11-29] MEDS ORDERED: KCL CR 10 MEQ CAP PO ONE (13:00)
[2016-11-29 16:18] VITALS: BP_SYST 121; RESP 20; TEMP 97.8
[2016-11-29] MEDS: TAMSULOSIN 0.4 MG CAP PO SCH (17:04)
[2016-11-29] MEDS ORDERED: TUBERCULIN PPD 5 UNIT SYR ID.VACC ONE (21:00)
[2016-11-29] MEDS: MONTELUKAST 10 MG TAB PO SCH (21:24)
[2016-11-29] MEDS: Atorvastatin 10 MG TAB PO SCH (21:24)
[2016-11-29] MEDS: QUEtiapine 25 MG TAB PO SCH (21:25)
[2016-11-29] MEDS: Finasteride 5 MG TAB PO SCH (21:25)
[2016-11-29] MEDS: MIRTAZAPINE 15 MG TAB PO SCH (21:25)
[2016-11-29] MEDS: TEMAZEPAM 15 MG CAP PO PRN (21:29)
[2016-11-30 02:15] VITALS: BP_SYST 133; RESP 18; TEMP 98.1
[2016-11-30] MEDS: PANTOPRAZOLE 40 MG TAB PO SCH ×2 (06:31→17:35)
[2016-11-30] MEDS: ENOXAPARIN 30 MG/0.3 ML SYR SUBQ SCH (08:52)
[2016-11-30] MEDS: ASPIRIN 81 MG CHEW TAB PO SCH (08:52)
[2016-11-30] MEDS: ESCITALOPRAM 10 MG TAB PO SCH (08:52)
[2016-11-30] MEDS: LISINOPRIL 20 MG TAB PO SCH (08:52)
[2016-11-30] MEDS: LEVETIRACETAM 500 MG TAB PO SCH ×2 (08:52→20:14)
[2016-11-30] MEDS: IRBESARTAN 150 MG TAB PO SCH (08:53)
[2016-11-30] MEDS: DILTIAZEM CD 120 MG CAP PO SCH (08:53)
[2016-11-30] MEDS: GABAPENTIN 100 MG CAP PO SCH ×2 (08:53→20:14)
[2016-11-30] MEDS: LORATADINE 10 MG TAB PO SCH (08:53)
[2016-11-30] MEDS: CALC CARB 500 MG CHEWTAB PO SCH (08:54)
[2016-11-30] MEDS: KCL CR 10 MEQ CAP PO SCH ×2 (08:54→20:15)
[2016-11-30] MEDS: FOLIC ACID 1 MG TAB PO SCH (08:54)
[2016-11-30] MEDS: CHOLECALCIFEROL 1,000 UNITS TAB PO SCH (08:54)
[2016-11-30] MEDS: BUPROPION XL 150 MG TAB PO SCH (08:54)
[2016-11-30] MEDS: PREDNISONE 5 MG TAB PO SCH (08:54)
[2016-11-30] MEDS: HCTZ 25 MG TAB PO SCH (08:55)
[2016-11-30 10:00] VITALS: BP_SYST 134; RESP 20; TEMP 98.4
[2016-11-30 15:51] VITALS: BP_SYST 142; RESP 18; TEMP 98.3
[2016-11-30] MEDS: TAMSULOSIN 0.4 MG CAP PO SCH (17:35)
[2016-11-30] MEDS: MIRTAZAPINE 15 MG TAB PO SCH (20:14)
[2016-11-30] MEDS: TEMAZEPAM 15 MG CAP PO PRN (20:14)
[2016-11-30] MEDS: Atorvastatin 10 MG TAB PO SCH (20:15)
[2016-11-30] MEDS: Finasteride 5 MG TAB PO SCH (20:15)
[2016-11-30] MEDS: QUEtiapine 25 MG TAB PO SCH (20:15)
[2016-11-30] MEDS: MONTELUKAST 10 MG TAB PO SCH (20:15)
[2016-12-01 03:56] VITALS: BP_SYST 142; RESP 20; TEMP 97.9
[2016-12-01] MEDS: PANTOPRAZOLE 40 MG TAB PO SCH ×2 (06:12→15:59)
[2016-12-01] MEDS: CALC CARB 500 MG CHEWTAB PO SCH (09:00)
[2016-12-01] MEDS: DILTIAZEM CD 120 MG CAP PO SCH (09:00)
[2016-12-01 10:20] VITALS: BP_SYST 139; RESP 18; TEMP 97.6
[2016-12-01] MEDS: LORATADINE 10 MG TAB PO SCH (10:26)
[2016-12-01] MEDS: LEVETIRACETAM 500 MG TAB PO SCH ×2 (10:27→20:43)
[2016-12-01] MEDS: FOLIC ACID 1 MG TAB PO SCH (10:27)
[2016-12-01] MEDS: HCTZ 25 MG TAB PO SCH (10:27)
[2016-12-01] MEDS: ASPIRIN 81 MG CHEW TAB PO SCH (10:27)
[2016-12-01] MEDS: ESCITALOPRAM 10 MG TAB PO SCH (10:27)
[2016-12-01] MEDS: IRBESARTAN 150 MG TAB PO SCH (10:27)
[2016-12-01] MEDS: CHOLECALCIFEROL 1,000 UNITS TAB PO SCH (10:28)
[2016-12-01] MEDS: PREDNISONE 5 MG TAB PO SCH (10:28)
[2016-12-01] MEDS: KCL CR 10 MEQ CAP PO SCH ×2 (10:28→20:43)
[2016-12-01] MEDS: BUPROPION XL 150 MG TAB PO SCH (10:28)
[2016-12-01] MEDS: GABAPENTIN 100 MG CAP PO SCH ×2 (10:28→20:42)
[2016-12-01] MEDS: LISINOPRIL 20 MG TAB PO SCH (10:29)
[2016-12-01] MEDS: ENOXAPARIN 30 MG/0.3 ML SYR SUBQ SCH (10:30)
[2016-12-01] MEDS ORDERED: Meclizine HCl 25 MG TAB PO ONE (14:00)
[2016-12-01 15:30] VITALS: BP_SYST 143; RESP 18; TEMP 97.8
[2016-12-01] MEDS: TAMSULOSIN 0.4 MG CAP PO SCH (18:16)
[2016-12-01] MEDS: Meclizine HCl 25 MG TAB PO SCH ×2 (18:16→20:43)
[2016-12-01] MEDS: Finasteride 5 MG TAB PO SCH (20:42)
[2016-12-01] MEDS: MIRTAZAPINE 15 MG TAB PO SCH (20:42)
[2016-12-01] MEDS: MONTELUKAST 10 MG TAB PO SCH (20:43)
[2016-12-01] MEDS: Atorvastatin 10 MG TAB PO SCH (20:43)
[2016-12-01] MEDS: QUEtiapine 25 MG TAB PO SCH (20:43)
[2016-12-01] MEDS: SKIN TEST: READ AND RECORD XX SCH (22:00)
[2016-12-01] MEDS: TEMAZEPAM 15 MG CAP PO PRN (22:00)
[2016-12-02] MEDS: PANTOPRAZOLE 40 MG TAB PO SCH (06:13)
[2016-12-02 06:35] VITALS: BP_SYST 151; RESP 20; TEMP 97.6
[2016-12-02] MEDS ORDERED: CETIRIZINE 10 MG TAB PO SCH (09:10)
[2016-12-02] MEDS: LEVETIRACETAM 500 MG TAB PO SCH (09:31)
[2016-12-02] MEDS: ASPIRIN 81 MG CHEW TAB PO SCH (09:32)
[2016-12-02] MEDS: FOLIC ACID 1 MG TAB PO SCH (09:32)
[2016-12-02] MEDS: KCL CR 10 MEQ CAP PO SCH (09:32)
[2016-12-02] MEDS: Meclizine HCl 25 MG TAB PO SCH (09:32)
[2016-12-02] MEDS: ESCITALOPRAM 10 MG TAB PO SCH (09:33)
[2016-12-02] MEDS: CALC CARB 500 MG CHEWTAB PO SCH (09:33)
[2016-12-02] MEDS: DILTIAZEM CD 120 MG CAP PO SCH (09:33)
[2016-12-02] MEDS: GABAPENTIN 100 MG CAP PO SCH (09:33)
[2016-12-02] MEDS: IRBESARTAN 150 MG TAB PO SCH (09:33)
[2016-12-02] MEDS: CHOLECALCIFEROL 1,000 UNITS TAB PO SCH (09:34)
[2016-12-02] MEDS: BUPROPION XL 150 MG TAB PO SCH (09:34)
[2016-12-02] MEDS: LISINOPRIL 20 MG TAB PO SCH (09:34)
[2016-12-02] MEDS: ENOXAPARIN 30 MG/0.3 ML SYR SUBQ SCH (09:36)
[2016-12-02] MEDS: PREDNISONE 5 MG TAB PO SCH (09:40)
[2016-12-02 09:45] VITALS: BP_SYST 148; RESP 18; TEMP 97.7
[2016-12-02 12:43] VITALS: BP_SYST 148; RESP 18; TEMP 97.7
== END 2016-12-02 15:47 | disposition home health service (06) | DRG 92 ==
LOC: ENPENDDIS 11-22 10:47 → NF 11-22 10:47
PROVIDERS: ADMIT Internal Medicine; ATTEND Internal Medicine
DX: R26.9 Unspecified abnormalities of gait and mobility (principal); G61.0 Guillain-Barre syndrome; N18.3 Chronic kidney disease, stage 3 (moderate); I12.9 Hypertensive chronic kidney disease with stage 1 through stage 4 chronic kidney disease, or unspecified chronic kidney disease; M48.06 Spinal stenosis, lumbar region; R29.6 Repeated falls; R53.1 Weakness; E83.110 Hereditary hemochromatosis; H81.10 Benign paroxysmal vertigo, unspecified ear; E87.6 Hypokalemia; Z86.73 Personal history of transient ischemic attack (TIA), and cerebral infarction without residual deficits
CPT/HCPCS: 36415; 80048; 82565; 82803; 82947; 83735; 83880; 85025; 86580